=== PATIENT | female | born 1995 | race Caucasian/White ===

== ENCOUNTER 2021-12-29 11:50 | Day surgery (SDC) | payer OTHER, SELFPAY ==
[2021-12-28 15:26] VITALS: BMI 36.1
[2021-12-29] VITALS (11 sets, daily range): BP systolic 119–175; BP diastolic 71–114; PULSE 75–104; RESP 15–27; TEMP 36.2–36.6; O2SAT 95–99; BMI 36.1
[2021-12-29] MEDS: LACTATED RINGERS 1,000 ML 42 ML IV (12:56)
--- NOTE | 2021-12-29 13:02 | P.HP_ITS ---
History of Present Illness History of Present Illness Date Patient Seen: 12/29/21 Time Patient Seen: 13:02 Chief complaint: SDC Narrative: 26-year-old female [place] with chronic tonsillitis tonsil stones, recurrent acute tonsillitis and respiratory obstruction, last seen in clinic 11/03/2021 presents for tonsillectomy and possible adenoidectomy as outpatient. No interval health changes other than left shoulder surgery within the last 3 weeks, cleared to proceed. Patient History Medical History Asthma Chronic tonsillitis Migraines Tonsil stone Tuberculosis Surgical History History of orthopedic surgery Hx of breast surgery [place] teeth removed Family & Social History Social History: household members children Tobacco & Substance use: Smoking Status Never smoker alcohol intake current Substance Use Type does not use Meds Home Medications and Allergies Home Medications Medication Instructions Recorded Confirmed Type levonorgestrel 20 mcg/24 hours (7 intrauterine CONT avoid 12/29/21 History yrs) 52 mg intrauterine device (Mirena) sumatriptan-naproxen mg PO USEASDIRECTD migraine 12/29/21 History topiramate 25 mg tablet (Topamax) 10 mg PO BID 12/29/21 12/29/21 History Allergies Allergy/AdvReac Type Severity Reaction Status Date / Time No Known Drug Allergies Allergy Verified 12/29/21 12:29 Review of Systems Review of Systems Narrative: Negative except as listed in the HPI Exam Vital Signs (past 8 hours): - 12/29/21 12:46 Temperature 97.6 F Pulse Rate 75 Respiratory Rate 16 Blood Pressure 122/88 Pulse Oximetry 99 Oxygen Delivery Method Room Air Oxygen Delivery Method Room Air Narrative Exam Narrative: Well-developed well-nourished female alert and oriented. Heart regular rate and rhythm without murmur lungs clear to auscultation bilaterally Assessment & Plan Assessment & Plan narrative: Assessment: Chronic tonsillitis, tonsil stones, recurrent acute tonsillitis and respiratory obstruction Plan: Following discussion of the material risks benefits complications and alternatives, the patient elected to proceed with tonsillectomy and possible adenoidectomy as outpatient. Time Spent With Patient Critical Care time: I spent a total of [] minutes of critical care time on this patient's care today; this time is exclusive of procedural time.
--- NOTE | 2021-12-29 13:02 | PM.PREOP ---
Pre-operative Note Interval Note History & Physical reviewed/Exam performed by Physician: Yes Changes to H&P: No
--- NOTE | 2021-12-29 13:04 | PM.OP.1 ---
Operative Date/Time/Diagnoses Date of procedure: 12/29/21 Time of procedure: 14:55 Pre-op diagnosis: Chronic tonsillitis, tonsil stones, recurrent acute tonsillitis and respiratory obstruction Post-op diagnosis: same (Mild adenoid hypertrophy) Procedure & Clinicians Procedure: Tonsillectomy and adenoidectomy Same procedure as scheduled: Yes Indications: 26-year-old female with above diagnoses incompletely managed with medical therapy presents for the above procedure. Following discussion of the material risks benefits complications and alternatives, she elected to proceed. Surgeon: Donell Díaz Click Yes if Unassisted: Yes Anesthesia Type: General and Local Operative Notes Findings: Intact palate, single uvula, 2 to 3+ cryptic and inflamed tonsils, difficult dissection. Narrow, high-arched palate, narrow oral cavity. 1+ adenoid tissue bled with minimal manipulation Estimated Blood Loss (mL): 30 Procedure in detail: Following identification and confirmation of consent the patient was brought to the operating room suite and placed in the supine position. General endotracheal anesthesia was administered. A head wrap, shoulder roll, and mouth gag were placed and a red rubber catheter was inserted through the nostril and out the mouth to retract the soft palate. Minimally obstructive adenoid tissue was ablated with suction electrocautery on a setting of 40, without injury to the eustachian tube orifices or choana. The left tonsil was retracted medially and suction electrocautery on a setting of 30 was used to dissect the tonsil in a subcapsular plane, followed by hemostasis with the same. This process was repeated on the right side with identical findings. The tonsillar fossae were superficially infiltrated bilaterally with 2% lidocaine 1 100,000 epinephrine. Mouth gag and rubber catheter were removed and the patient was extubated in the operating room and taken to the recovery room in stable condition without known complication. Complications: none Post-operative Condition: stable Disposition: same day surgery Plan for aftercare: Push fluids, alternate Tylenol and Advil every 3 hours for baseline pain control, oxycodone for breakthrough pain. Soft diet 2 full weeks, no heavy lifting or straining 2 weeks.
[2021-12-29] MEDS: SCOPOLAMINE 1 PATCH TOP (13:59)
--- NOTE | 2021-12-29 14:19 | SUR.OPER ---
Supine on padded OR bed, head on pillow, left arm secured on padded arm boards at <90 degrees abduction, right arm left in immobilizer sling supported by padded arm board legs uncrossed, safety belt at thigh
[2021-12-29] MEDS: LIDOCAINE 2% W/EPI INJ 20 ML INJ (14:31)
[2021-12-29] MEDS: OXYMETAZOLINE NASAL SPRAY 15 ML 2 SPRAYS NASAL (14:32)
[2021-12-29] MEDS: HYDROMORPHONE 2 MG INJ IV ×2 (15:07→15:14)
[2021-12-29] MEDS: OXYCODONE IR 5 MG TABLET PO (15:36)
== END 2021-12-29 16:05 | disposition home or self-care (01) ==
PROVIDERS: Referring Provider Otolaryngology; Visit Provider Otolaryngology
PROC: (CPT 42821; principal; 2021-12-29 13:30)
DX: J03.91 Acute recurrent tonsillitis, unspecified (principal); J98.8 Other specified respiratory disorders
CPT/HCPCS: 42821; J1100; J1170; J2250; J2405; J2704; J3010